=== PATIENT | male | born 1955 | race Caucasian/White ===

== ENCOUNTER 2018-03-03 10:49 | Observation (INO) | payer BC ==
[2018-03-03] MEDS ORDERED: LIDOCAINE 1% 2 ML INJ ID PRN (11:01)
[2018-03-03] MEDS ORDERED: LR 1,000 ML IV ONE (11:01)
--- NOTE | 2018-03-03 11:13 | PDANEPAE ---
ANE History of Present Illness BPH with urinary obstruction ANE Past Medical History - Cardiovascular History Hx Hypertension: No Hx Arrhythmias: No Hx Chest Pain: No Hx Coronary Artery / Peripheral Vascular Disease: No Hx CHF / Valvular Disease: No Hx Palpitations: No - Pulmonary History Hx COPD: No Hx Asthma/Reactive Airway Disease: No Hx Recent Upper Respiratory Infection: No Hx Oxygen in Use at Home: No Hx Sleep Apnea: No Sleep Apnea Screening Result - Last Documented: Negative - Neurologic History Hx Cerebrovascular Accident: No Hx Seizures: No Hx Dementia: No Neurologic History Comment: occasional migraines "about once or twice a year" - Endocrine History Hx Diabetes: No Hypothyroid: No Hyperthyroid: No Obesity: no - Renal History Hx Renal Disorders: Yes Renal History Comment: Hx of UTI's. BPH - Liver History Hx Hepatic Disorders: No - Neurological & Psychiatric Hx Hx Neurological and Psychiatric Disorders: Yes Neurological / Psychiatric History Comment: hx of anxiety - treated in the past with effexor, nothing current - Cancer History Hx Cancer: No - Congenital Disorder History Hx Congenital Disorders: No - GI History GERD: no Hx Gastrointestinal Disorders: Yes Gastrointestinal History Comment: lower esophageal ring - Other Health History Other Health History: wears glasses for reading - Chronic Pain History Chronic Pain: Yes - Surgical History Prior Surgeries: tonsillectomy. EGD's & colonoscopies ANE Review of Systems Review of systems is: negative Review of Systems: - Exercise capacity METS (RN): 5 METS ANE Patient History - Allergies Allergies/Adverse Reactions: No Known Allergies Allergy (Verified 02/25/18 10:32) - Home Medications Home medications: home medication list seen and reviewed Home Medications: Aspirin 81mg (*) 02/25/18 [Last Taken 02/20/18] Tamsulosin HCl [Flomax 0.4 MG (*)] 02/25/18 [Last Taken Unknown] - NPO status NPO Status: no food or drink >8 hours - Anes Hx Anes Hx: no prior problems - Smoking Hx Smoking Status: Never smoked Marijuana use: No - Alcohol Use Alcohol Use: Rarely - Family Anes Hx Family Anes Hx: none Family Hx Anesthesia Complications: none ANE Labs/Vital Signs - Vital Signs Height: 170.18 cm Weight: 72.575 kg ANE Physical Exam - Airway Neck exam: FROM Mallampati Score: Class 2 Mouth exam: normal dental/mouth exam - Pulmonary Pulmonary: no respiratory distress, clear to auscultation - Cardiovascular Cardiovascular: regular rate and rhythym, no murmur, rub, or gallop - ASA Status ASA Status: II ANE Anesthesia Plan Anesthesia Plan: general endotracheal anesthesia, GA w LMA
[2018-03-03] MEDS ORDERED: LIDOCAINE 2% JELLY 20 ML (UROJECT) ONE (12:05)
[2018-03-03] MEDS ORDERED: fentaNYL 100 MCG/2 ML INJ ONE (12:52)
[2018-03-03] MEDS ORDERED: PROPOFOL 200 MG/20 ML VIAL ONE (12:52)
[2018-03-03] MEDS ORDERED: CEFAZOLIN 2 GM/DEXTROSE/100 ML BAG IV ONE (13:20)
[2018-03-03] MEDS ORDERED: ceFAZolin 3 GM in D5W 100 ML IV ONE (13:27)
[2018-03-03] MEDS ORDERED: OPIUM/BELLADONNA ALKALO SUPP PR PRN (13:27)
--- NOTE | 2018-03-03 13:27 | PDHPUP ---
History & Physical Update H&P update statement: This history and physical update is based on an assessment of the patient which was completed after admission or registration (within 24 hours), but prior to the surgery/procedure. H&P update: H&P reviewed & patient examined, no change in patient's condition since H&P completed
[2018-03-03] MEDS ORDERED: D5W LR 1,000 ML IV SCH (13:30)
[2018-03-03] MEDS ORDERED: HYDROCODONE/APAP 5/325 TAB PO PRN (13:30)
[2018-03-03] MEDS ORDERED: HYDROmorphONE/DILAUDID 1 MG/ML INJ IVP PRN (13:34)
[2018-03-03] MEDS ORDERED: ONDANSETRON 4 MG/2 ML VIAL IVP PRN (13:34)
[2018-03-03] MEDS ORDERED: DEXAMETHASONE 4 MG/ML VIAL ONE (13:45)
[2018-03-03] MEDS ORDERED: ONDANSETRON 4 MG/2 ML VIAL ONE (13:46)
[2018-03-03] MEDS ORDERED: MEPERIDINE 25 MG/0.5 ML AMP IVP PRN (13:52)
[2018-03-03] MEDS ORDERED: HYDROmorphONE/DILAUDID 2 MG/ML INJ IVP PRN (13:52)
[2018-03-03] MEDS ORDERED: fentaNYL 100 MCG/2 ML INJ IVP PRN (13:52)
[2018-03-03] MEDS ORDERED: NALOXONE HCL 0.4 MG/ML INJ IVP PRN (13:52)
[2018-03-03] MEDS ORDERED: PROMETHAZINE HCL 25 MG/ML INJ IVP PRN (13:52)
--- NOTE | 2018-03-03 13:52 | POSTANESTH ---
Post Anesthetic Evaluation Cardiovascular Status: Normal, Stable Respiratory Status: Normal, Stable Level of Consciousness/Mental Status: Can Participate in Eval Pain Control: Adequate, Prn Tx Ordered Nausea/Vomiting Control: Adequate, Prn Tx Ordered Complications Possibly Related to Anesthesia: None Noted
[2018-03-03] MEDS ORDERED: OPIUM/BELLADONNA ALKALO SUPP PR ONE (13:55)
[2018-03-03] MEDS ORDERED: ceFAZolin 2 GM/DEXTROSE 100 ML IV ONE (14:30)
--- NOTE | 2018-03-03 15:07 | POSTOPPROG ---
Post Op Note Date of Operation: 03/03/18 Surgeon: Abi Hawkins Anesthesia: GET(General Endotracheal) Pre-op Diagnosis: BPH with LUTs Post-op Diagnosis: same Indication: BPH w LUTs Procedure: cysto, TURP in saline Findings: trilobar hypertrophy Inf/Abcess present in the surg proc area at time of surgery?: No EBL: 50-100 Complications: NOne, patient tolerated procedure well. Drains: Other (oates) Specimen(s): Prostate chips
[2018-03-03] MEDS: SENNOSIDES/DOCUSATE SODIUM TAB PO SCH (20:36)
[2018-03-03] MEDS: ceFAZolin 2 GM/DEXTROSE 100 ML IV SCH (20:58)
[2018-03-03] MEDS ORDERED: ceFAZolin 2 GM in D5W 100 ML IV ONE (21:30)
--- NOTE | 2018-03-04 00:08 | GOP ---
DATE OF OPERATION: 03/03/2018 SURGEON: Abi Hawkins MD ANESTHESIOLOGIST: Jasmeet Chao MD. PREOPERATIVE DIAGNOSIS: Benign prostatic hyperplasia with lower urinary tract symptoms. POSTOPERATIVE DIAGNOSIS: Benign prostatic hyperplasia with lower urinary tract symptoms. PROCEDURE PERFORMED: Cystoscopy and transurethral resection of prostate in saline. FINDINGS: INDICATIONS: The patient presented my office with severe irritative symptoms and retention, and cyst oscopy in clinic showed trilobar hypertrophy with significant median lobe growth into the bladder. D iscussion was on a TURP, given the large size of his median lobe. He understood. The rationale, ris ks, and benefits were discussed in detail. The risks include bleeding; infection; pain; injury to th e urethra, bladder, ureters, or ureteral orifices; need for subsequent procedures; small risk of uret hral stricture; small risk of bladder neck contracture; and very small risk of urinary incontinence. He understood these risks do not outweigh the benefits and agreed to proceed. DESCRIPTION OF PROCEDURE: He was taken back to the cystoscopy suite, placed on the cystoscopy table in the supine position. General anesthesia induced without complication. Time-out performed and cor e measures satisfied, including placement of a Marina Hugger, SCDs, and administration of 2 g Ancef ant ibiotics. He was brought to the end of the table, placed in a dorsal lithotomy position. All pressu re points padded. Genitalia draped and prepped in the standard surgical fashion with Betadine. Visu al obturator easily cannulated the urethral meatus and was advanced atraumatically into the bladder w ith direct vision. The resectoscope was assembled. Both right and left ureteral orifices were easil y identified. Tissue was resected starting at the 5 and the 7 o'clock positions of the prostate dist al to the ureteral orifice on the right and distal to the ureteral orifice on the left. The resectio n was then taken down in the central zone tissue between the 5 and 7 positions, and this tissue was t hen resected back to the veru, but did not include the veru. The veru was kept inside at all times d uring the procedure to make sure it was not violated and then the right lateral lobe and then the lef t lateral lobe were taken down with the resectoscope. Anterior tissue was then removed, again being careful not to violate the location of the veru. The tissue was taken down to the point near the cap di. Hemostasis maintained throughout with electrocautery that was used liberally. Then the Solyndra evacuator was used to remove the chips, and this was done repeatedly several times to remove all the chips. At the end of the procedure, hemostasis was excellent. He was open when sitting at the veru and looking into the bladder. The right and left ureteral orifices were verified to be untouched wit h the resectoscope, and they were untouched. Liver was not violated, and I was very happy with the r esection. All the prostate chips had been removed, and at this point scope was removed and a 24-Fren ch 3-way catheter placed. It was manually irrigated by hand, and it was very clear. The balloon was inflated with 40 mL of sterile water and CBI connected to the catheter. At this point, the procedur e was considered complete. Belladonna opium suppository placed per rectum, and he was transferred to PACU in good condition. /[id number]/MODL
[2018-03-04] MEDS: ceFAZolin 2 GM/DEXTROSE 100 ML IV SCH ×2 (04:22→14:00)
[2018-03-04] MEDS: SENNOSIDES/DOCUSATE SODIUM TAB PO SCH (07:58)
--- NOTE | 2018-03-04 08:19 | SOAPPROG ---
SOAP Progress Note Assessment/Plan: Assessment: Postop TURP. Doing well. Plan: 03/04/18 08:11 Hold CBI this morning, ambulate. If urine remains clear, then will do voiding trial. Subjective: Patient physically seen last night at 10pm. Doing wel. Tolerating diet. No pain. Ambulated last night. Objective: Vital Signs Temp Pulse Resp BP Pulse Ox 36.8 C 57 L 16 120/72 94 03/03/18 17:02 03/03/18 23:19 03/03/18 23:19 03/03/18 19:13 03/03/18 23:19 03/03/18 03/04/18 03/05/18 05:59 05:59 05:59 Intake Total 3654 Output Total 1800 Balance 1854 Exam at 10pm last night: Gen NAD A&O CV regular Lungs NOrmal effort Abd soft Ext warm urine clear in tubing, CBI light gtt. Stat lock in place. - Pending Discharge Pending Discharge Within 24 Hours: Yes Pending Discharge Date: 03/05/18 Pending Discharge Time: 11:00 ICD10 Worksheet Patient Problems: Problems Problem Status Onset BPH loc w urin obs/LUTS Acute - ICD10 Problem Qualifiers (1) BPH loc w urin obs/LUTS
[2018-03-04 08:47] VITALS: BP 114/76
--- NOTE | 2018-03-04 08:53 | ASMTLACE ---
LACE Length of stay for Answers: Less than 1 day current admission Comorbidities - select Answers: Opioid dependence all that apply / Chronic pain # of Emergency department Answers: 0 visits in the last 6 months Social determinants Answers: Mental health diagnosis (anxiety, depression, pers onality disorders, etc.) Score: 7 Date Signed: 03/04/2018 08:52 AM Electronically Signed By:Gissel Crane RN
--- NOTE | 2018-03-04 08:54 | ASMTDCNOTE ---
Case Management Discharge Discharge Order Complete? Answers: Yes Patient to Obtain Answers: Independently Medications Transportation Arranged Answers: Family/Friends Discharge Comments Notes: Patient s/p TURP. Medically cleared for discharge. No needs. Date Signed: 03/04/2018 08:54 AM Electronically Signed By:Gissel Crane RN
[2018-03-04] MEDS ORDERED: TAMSULOSIN HCL 0.4 MG CAP PO SCH (09:00)
== END 2018-03-04 13:45 | disposition home or self-care (01) ==
LOC: FSGY 10:49 → F2W 13:31 → F1N 15:57
PROVIDERS: ADMIT Urology; ATTEND Urology
DX: N40.1 Benign prostatic hyperplasia with lower urinary tract symptoms (principal); N13.8 Other obstructive and reflux uropathy
CPT/HCPCS: 52630; G0378; J0690; J1100; J2405; J2704; J3010